=== PATIENT | male | born 1970 | race American Indian/Alaskan Native ===

== ENCOUNTER 2019-05-14 17:52 | Emergency (ER) | payer OTHER ==
--- NOTE | 2019-05-14 18:22 | Event Note ---
ED Screening Note Date of service: 05/14/19 Time: 18:21 ED Screening Note: 48 y/o male comes in for SOB, bilateral lower leg edema and increase weight and abd girth. Hx/o DM, HTN Asthma. This initial assessment/diagnostic orders/clinical plan/treatment(s) is/are subject to change based on patients health status, clinical progression and re- assessment by fellow clinical providers in the ED. Further treatment and workup at subsequent clinical providers discretion. Patient/guardian urged not to elope from the ED as their condition may be serious if not clinically assessed and managed. Initial orders include:
[2019-05-14 18:49] LABS: Hematocrit 43.4 % (35.5-45.6); Hemoglobin 14.7 gm/dl (11.8-15.2); Mean Corpuscular HGB Conc 34 % (32-34); Mean Corpuscular Volume 79 fl (84-94); Platelet Count 292 K/mm3 (140-440); Red Blood Count 5.46 M/mm3 (3.65-5.03); Red Cell Distribution Width 16.9 % (13.2-15.2)
--- NOTE | 2019-05-14 19:17 | XRay Report ---
CHEST 2 VIEWS INDICATION / CLINICAL INFORMATION: SOB. COMPARISON: 08/27/2013 FINDINGS: SUPPORT DEVICES: None. HEART / MEDIASTINUM: No significant abnormality. LUNGS / PLEURA: No significant pulmonary or pleural abnormality. No pneumothorax. ADDITIONAL FINDINGS: No significant additional findings. IMPRESSION: 1. No acute findings. Signer Name: Julio Cortez MD Signed: 05/14/2019 7:13 PM Workstation Name: [id number]
[2019-05-14 19:27] LABS: Alanine Aminotransferase 19 units/L (7-56); Albumin 3.8 g/dL (3.9-5); BUN/Creatinine Ratio 16; Blood Urea Nitrogen 23 mg/dL (9-20); Calcium 9.2 mg/dL (8.4-10.2); Hemolysis Index 15
[2019-05-14 21:02] LABS: Bacteria,Urine 1+ /HPF (Negative); Bilirubin,Urine NEG (Negative); Blood,Urine NEG (Negative); Color,Urine Yellow (Yellow); Mucus,Urine FEW /HPF; Protein,Urine >500 mg/dL (Negative); RBC,Urine < 1.0 /HPF (0.0-6.0); Urobilinogen,Urine < 2.0 mg/dL (<2.0); WBC,Urine < 1.0 /HPF (0.0-6.0)
--- NOTE | 2019-05-14 23:21 | Emergency Department Report ---
ED General Adult HPI - General Chief complaint: High BP Stated complaint: HPB/BLURY VISION Time Seen by Provider: 05/14/19 18:19 Source: patient Mode of arrival: Ambulatory Limitations: No Limitations - History of Present Illness Initial comments: This is a 48-year-old male that presents to the ER with elevated blood pressure and blurry vision. Past medical history of HTN, DM2, and asthma. Patient states his PCP took him off HCTZ a few months ago and he can't control dependent edema. He reports intermittent elevated blood pressure readings. He is currently taking nafidepine and lisinopril. PCP is at the [facility]. He denies orthopnea, chest pain, SOB, and dizziness. - Related Data Home Medications Medication Instructions Recorded Confirmed Last Taken Albuterol Sulfate [Albuterol 0.63%] 0.63 mg IH TID PRN 08/27/13 08/27/13 08/26/13 10:00 Aspirin [Baby Aspirin] 81 mg PO QDAY 08/27/13 08/27/13 08/26/13 10:00 Hydrochlorothiazide [Hctz] 50 mg PO QDAY 08/27/13 08/27/13 08/26/13 10:00 Previous Rx's Medication Instructions Recorded Last Taken Type Albuterol *Only Ed* [Proventil 2.5 mg IH Q4H PRN #30 nebu 08/27/13 Unknown Rx 0.5% NEBS] Azithromycin [Zithromax Z-SASHA] 250 mg PO DAILY #6 tablet 08/27/13 Unknown Rx Nebulizer [Compact Compressor 1 each MC Q4H PRN #1 kit 08/27/13 Unknown Rx Nebulizer] Prednisone 40 mg PO QDAY #8 tablet 08/27/13 Unknown Rx hydroCHLOROthiazide [Hctz] 12.5 mg PO QDAY #5 capsule 05/15/19 Unknown Rx Allergies Allergy/AdvReac Type Severity Reaction Status Date / Time dust Allergy Shortness Uncoded 08/27/13 01:52 of Breath pollen Allergy Unknown Uncoded 08/27/13 01:52 ED Review of Systems ROS: Stated complaint: HPB/BLURY VISION Other details as noted in HPI ED Past Medical Hx - Past Medical History Hx Hypertension: Yes Hx Diabetes: Yes Hx Asthma: Yes - Surgical History Past Surgical History?: No - Social History Smoking Status: Never Smoker Substance Use Type: None - Medications Home Medications: Home Medications Medication Instructions Recorded Confirmed Last Taken Type Albuterol *Only Ed* [Proventil 2.5 mg IH Q4H PRN #30 nebu 08/27/13 Unknown Rx 0.5% NEBS] Albuterol Sulfate [Albuterol 0.63%] 0.63 mg IH TID PRN 08/27/13 08/27/13 08/26/13 10:00 History Aspirin [Baby Aspirin] 81 mg PO QDAY 08/27/13 08/27/13 08/26/13 10:00 History Azithromycin [Zithromax Z-SASHA] 250 mg PO DAILY #6 tablet 08/27/13 Unknown Rx Hydrochlorothiazide [Hctz] 50 mg PO QDAY 08/27/13 08/27/13 08/26/13 10:00 History Nebulizer [Compact Compressor 1 each MC Q4H PRN #1 kit 08/27/13 Unknown Rx Nebulizer] Prednisone 40 mg PO QDAY #8 tablet 08/27/13 Unknown Rx hydroCHLOROthiazide [Hctz] 12.5 mg PO QDAY #5 capsule 05/15/19 Unknown Rx ED Physical Exam - General Limitations: No Limitations ED Course Vital Signs 05/14/19 05/14/19 05/14/19 18:08 21:00 21:15 Temperature 97.7 F Pulse Rate 133 H 87 Respiratory 16 15 Rate Blood Pressure 141/95 174/94 162/98 O2 Sat by Pulse 95 99 Oximetry 05/14/19 05/14/19 05/14/19 21:30 21:45 22:00 Temperature Pulse Rate 86 79 75 Respiratory 16 16 13 Rate Blood Pressure 162/98 147/97 147/97 O2 Sat by Pulse 100 99 94 Oximetry 05/14/19 05/14/19 05/14/19 22:16 22:30 22:46 Temperature Pulse Rate 75 87 79 Respiratory 13 16 13 Rate Blood Pressure 143/97 161/103 159/82 O2 Sat by Pulse 90 100 98 Oximetry 05/14/19 05/14/19 05/14/19 23:00 23:15 23:30 Temperature Pulse Rate 76 73 84 Respiratory 14 13 14 Rate Blood Pressure 159/82 165/111 159/82 O2 Sat by Pulse 97 98 99 Oximetry ED Medical Decision Making - Lab Data Result diagrams: 05/14/19 18:23 05/14/19 18:23 Lab Results 05/14/19 05/14/19 05/14/19 Range/Units 18:23 18:23 18:30 WBC 7.2 (4.5-11.0) K/mm3 RBC 5.46 H (3.65-5.03) M/mm3 Hgb 14.7 (11.8-15.2) gm/dl Hct 43.4 (35.5-45.6) % MCV 79 L (84-94) fl MCH 27 L (28-32) pg MCHC 34 (32-34) % RDW 16.9 H (13.2-15.2) % Plt Count 292 (140-440) K/mm3 Sodium 141 (137-145) mmol/L Potassium 4.0 (3.6-5.0) mmol/L Chloride 99.6 (98-107) mmol/L Carbon Dioxide 31 H (22-30) mmol/L Anion Gap 14 mmol/L BUN 23 H (9-20) mg/dL Creatinine 1.4 (0.8-1.5) mg/dL Estimated GFR > 60 ml/min BUN/Creatinine Ratio 16 % Glucose 260 H (75-100) mg/dL POC Glucose 251 H (70-105) Calcium 9.2 (8.4-10.2) mg/dL Total Bilirubin 0.30 (0.1-1.2) mg/dL AST 20 (5-40) units/L ALT 19 (7-56) units/L Alkaline Phosphatase 96 (35-129) units/L NT-Pro-B Natriuret Pep 1145 H (0-900) pg/mL Total Protein 7.2 (6.3-8.2) g/dL Albumin 3.8 L (3.9-5) g/dL Albumin/Globulin Ratio 1.1 % Urine Color (Yellow) Urine Turbidity (Clear) Urine pH (5.0-7.0) Ur Specific Crawford (1.003-1.030) Urine Protein (Negative) mg/dL Urine Glucose (UA) (Negative) mg/dL Urine Ketones (Negative) mg/dL Urine Blood (Negative) Urine Nitrite (Negative) Urine Bilirubin (Negative) Urine Urobilinogen (<2.0) mg/dL Ur Leukocyte Esterase (Negative) Urine WBC (Auto) (0.0-6.0) /HPF Urine RBC (Auto) (0.0-6.0) /HPF Urine Bacteria (Auto) (Negative) /HPF Urine Mucus /HPF 05/14/19 Range/Units Unknown WBC (4.5-11.0) K/mm3 RBC (3.65-5.03) M/mm3 Hgb (11.8-15.2) gm/dl Hct (35.5-45.6) % MCV (84-94) fl MCH (28-32) pg MCHC (32-34) % RDW (13.2-15.2) % Plt Count (140-440) K/mm3 Sodium (137-145) mmol/L Potassium (3.6-5.0) mmol/L Chloride (98-107) mmol/L Carbon Dioxide (22-30) mmol/L Anion Gap mmol/L BUN (9-20) mg/dL Creatinine (0.8-1.5) mg/dL Estimated GFR ml/min BUN/Creatinine Ratio % Glucose (75-100) mg/dL POC Glucose (70-105) Calcium (8.4-10.2) mg/dL Total Bilirubin (0.1-1.2) mg/dL AST (5-40) units/L ALT (7-56) units/L Alkaline Phosphatase (35-129) units/L NT-Pro-B Natriuret Pep (0-900) pg/mL Total Protein (6.3-8.2) g/dL Albumin (3.9-5) g/dL Albumin/Globulin Ratio % Urine Color Yellow (Yellow) Urine Turbidity Clear (Clear) Urine pH 6.0 (5.0-7.0) Ur Specific Crawford 1.016 (1.003-1.030) Urine Protein >500 (Negative) mg/dL Urine Glucose (UA) >=500 (Negative) mg/dL Urine Ketones Neg (Negative) mg/dL Urine Blood Neg (Negative) Urine Nitrite Neg (Negative) Urine Bilirubin Neg (Negative) Urine Urobilinogen < 2.0 (<2.0) mg/dL Ur Leukocyte Esterase Neg (Negative) Urine WBC (Auto) < 1.0 (0.0-6.0) /HPF Urine RBC (Auto) < 1.0 (0.0-6.0) /HPF Urine Bacteria (Auto) 1+ (Negative) /HPF Urine Mucus Few /HPF - EKG Data -: No EKG Interpreted by Me (EKG Interpreted by Attending) EKG shows normal: sinus rhythm Rate: normal - Radiology Data Radiology results: report reviewed CHEST 2 VIEWS INDICATION / CLINICAL INFORMATION: SOB. COMPARISON: 08/27/2013 FINDINGS: SUPPORT DEVICES: None. HEART / MEDIASTINUM: No significant abnormality. LUNGS / PLEURA: No significant pulmonary or pleural abnormality. No pneumothorax. ADDITIONAL FINDINGS: No significant additional findings. IMPRESSION: 1. No acute findings. - Medical Decision Making Patient seen by this provider. Vitals are stable and patient in no acute distress. Labs, EKG, and CXR obtained. The BNP is slightly elevated but patient his morbidly obese, DM2, & HTN. He denies orthopnea or chest pain. There is mild nonpitting edema, lung clear bilaterally on auscultation. EKG interpreted by attending, normal sinus rhythm 94. Start HCTZ for 5 days and instructed to follow up with PCP [facility]. Critical care attestation.: If time is entered above; I have spent that time in minutes in the direct care o f this critically ill patient, excluding procedure time. ED Disposition Clinical Impression: Hypertension Qualifiers: Hypertension type: essential hypertension Qualified Code(s): I10 - Essential (primary) hypertension Disposition: DC- TO HOME OR SELFCARE Is pt being admited?: No Does the pt Need Aspirin: No Condition: Stable Instructions: Hypertension (ED) Additional Instructions: Follow up with your primary care doctor at the [facility] in the next week. Return to the ER with shortness of breath, chest pain, or worsening symptoms. Prescriptions: hydroCHLOROthiazide [Hctz] 12.5 mg PO QDAY #5 capsule Referrals: SAGRARIO HATCH MD [Primary Care Provider] - 3-5 Days [facility] [Outside] - 3-5 Days Forms: Work/School Release Form(ED) Time of Disposition: 00:06
[2019-05-15 01:37] VITALS: BP 122/97
== END 2019-05-15 01:37 | disposition home or self-care (01) ==
LOC: ED 17:52
DX: I10 Essential (primary) hypertension (principal); E11.9 Type 2 diabetes mellitus without complications; J45.909 Unspecified asthma, uncomplicated
CPT/HCPCS: 36415; 71046; 80053; 81001; 82962; 83880; 85027; 93005; 93010

== ENCOUNTER 2021-04-12 09:24 | Emergency (ER) | payer OTHER ==
--- NOTE | 2021-04-12 10:16 | Emergency Department Report ---
ED Extremity Problem HPI - General Chief complaint: Pain General Stated complaint: (R)FOOT PAIN/GOUT Source: patient Mode of arrival: Ambulatory Limitations: No Limitations - History of Present Illness Initial comments: pt is a 50 yo male who presents to the ED with c/o acute gout flare of the right foot that began yesterday. he states he typically gets gout flares in the right foot and big toe. he denies any flare in the toe during this episode. he denies any fall or injury. he denies any numbness or weakness. pmhx of HTN and DM. he reports his glucose is well controlled with oral medications and he states his glucose typically runs in the 100s or less. no allergies to meds - Related Data Home Medications Medication Instructions Recorded Confirmed Last Taken Albuterol Sulfate [Albuterol 0.63%] 0.63 mg IH TID PRN 08/27/13 08/27/13 08/26/13 10:00 Aspirin [Baby Aspirin] 81 mg PO QDAY 08/27/13 08/27/13 08/26/13 10:00 Hydrochlorothiazide [Hctz] 50 mg PO QDAY 08/27/13 08/27/13 08/26/13 10:00 Previous Rx's Medication Instructions Recorded Last Taken Type Albuterol *Only Ed* [Proventil 2.5 mg IH Q4H PRN #30 nebu 08/27/13 Unknown Rx 0.5% NEBS] Azithromycin [Zithromax Z-SASHA] 250 mg PO DAILY #6 tablet 08/27/13 Unknown Rx Nebulizer [Compact Compressor 1 each MC Q4H PRN #1 kit 08/27/13 Unknown Rx Nebulizer] Prednisone 40 mg PO QDAY #8 tablet 08/27/13 Unknown Rx hydroCHLOROthiazide [Hctz] 12.5 mg PO QDAY #5 capsule 05/15/19 Unknown Rx Colchicine 0.6 mg PO DAILY 1 Days #3 tablet 04/12/21 Unknown Rx Indomethacin [Indocin] 25 mg PO Q8H #20 capsule 04/12/21 Unknown Rx predniSONE [Deltasone] 40 mg PO QDAY 5 Days #10 tab 04/12/21 Unknown Rx traMADoL [Ultram 50 MG tab] 50 mg PO Q6HR PRN #10 tablet 04/12/21 Unknown Rx Allergies Allergy/AdvReac Type Severity Reaction Status Date / Time dust Allergy Shortness Uncoded 08/27/13 01:52 of Breath pollen Allergy Unknown Uncoded 08/27/13 01:52 ED Review of Systems ROS: Stated complaint: (R)FOOT PAIN/GOUT Other details as noted in HPI Comment: All other systems reviewed and negative ED Past Medical Hx - Past Medical History Hx Hypertension: Yes Hx Diabetes: Yes Hx Asthma: Yes Additional medical history: Gout - Surgical History Past Surgical History?: No - Social History Smoking Status: Never Smoker Substance Use Type: None - Medications Home Medications: Home Medications Medication Instructions Recorded Confirmed Last Taken Type Albuterol *Only Ed* [Proventil 2.5 mg IH Q4H PRN #30 nebu 08/27/13 Unknown Rx 0.5% NEBS] Albuterol Sulfate [Albuterol 0.63%] 0.63 mg IH TID PRN 08/27/13 08/27/13 08/26/13 10:00 History Aspirin [Baby Aspirin] 81 mg PO QDAY 08/27/13 08/27/13 08/26/13 10:00 History Azithromycin [Zithromax Z-SASHA] 250 mg PO DAILY #6 tablet 08/27/13 Unknown Rx Hydrochlorothiazide [Hctz] 50 mg PO QDAY 08/27/13 08/27/13 08/26/13 10:00 History Nebulizer [Compact Compressor 1 each MC Q4H PRN #1 kit 08/27/13 Unknown Rx Nebulizer] Prednisone 40 mg PO QDAY #8 tablet 08/27/13 Unknown Rx hydroCHLOROthiazide [Hctz] 12.5 mg PO QDAY #5 capsule 05/15/19 Unknown Rx Colchicine 0.6 mg PO DAILY 1 Days #3 tablet 04/12/21 Unknown Rx Indomethacin [Indocin] 25 mg PO Q8H #20 capsule 04/12/21 Unknown Rx predniSONE [Deltasone] 40 mg PO QDAY 5 Days #10 tab 04/12/21 Unknown Rx traMADoL [Ultram 50 MG tab] 50 mg PO Q6HR PRN #10 tablet 04/12/21 Unknown Rx ED Physical Exam - General Limitations: No Limitations General appearance: alert, in no apparent distress - Head Head exam: Present: atraumatic, normocephalic - Eye Eye exam: Present: normal appearance - ENT ENT exam: Present: mucous membranes moist - Respiratory Respiratory exam: Absent: respiratory distress, accessory muscle use - Extremities Exam Extremities exam: Present: other (ttp and mild edema present to the right dorsal foot, FROM of the RLE, no erythema, no skin changes, no ulcerations, neurovascularly intact) - Neurological Exam Neurological exam: Present: alert, oriented X3 - Psychiatric Psychiatric exam: Present: normal affect, normal mood - Skin Skin exam: Present: warm, dry ED Course Vital Signs 04/12/21 10:04 Temperature 98.5 F Pulse Rate 98 H Respiratory 20 Rate Blood Pressure 138/79 O2 Sat by Pulse 99 Oximetry ED Medical Decision Making - Medical Decision Making pt is a 50 yo male who presents to the ED with c/o acute gout flare of the right foot that began yesterday. he states he typically gets gout flares in the right foot and big toe. he denies any flare in the toe during this episode. he denies any fall or injury. he denies any numbness or weakness. pmhx of HTN and DM. he reports his glucose is well controlled with oral medications and he states his glucose typically runs in the 100s or less. no allergies to meds. Vitals are stable. On exam:ttp and mild edema present to the right dorsal foot, FROM of the RLE, no erythema, no skin changes, no ulcerations, neurovascularly intact. Examination appears consistent with patient's acute gout flare. Patient given prescription for medication. Discussed the importance of outpatient primary care follow-up. Advised patient please take medication as prescribed. follow the diet for gout. follow up with your primary care doctor. return to the emergency room for any new or worsening symptoms. please check your sugars daily and if 250 or greater please stop the steroid (prednisone). Critical care attestation.: If time is entered above; I have spent that time in minutes in the direct care of this critically ill patient, excluding procedure time. ED Disposition Clinical Impression: Gout flare Qualifiers: Gout site: foot Gout etiology: unspecified cause Laterality: right Qualified Code(s): M10.9 - Gout, unspecified Disposition: HOME / SELF CARE / HOMELESS Is pt being admited?: No Does the pt Need Aspirin: No Condition: Stable Instructions: Low-Purine Eating Plan Additional Instructions: please take medication as prescribed. follow the diet for gout. follow up with your primary care doctor. return to the emergency room for any new or worsening symptoms. please check your sugars daily and if 250 or greater please stop the steroid (prednisone). Prescriptions: Colchicine 0.6 mg PO DAILY 1 Days #3 tablet predniSONE [Deltasone] 40 mg PO QDAY 5 Days #10 tab Indomethacin [Indocin] 25 mg PO Q8H #20 capsule traMADoL [Ultram 50 MG tab] 50 mg PO Q6HR PRN #10 tablet PRN Reason: Pain , Severe (7-10) Referrals: your, primary care doctor [Other] - 2-3 Days Time of Disposition: 10:19 Print Language: BULGARIAN
[2021-04-12 10:20] VITALS: BP 138/79
== END 2021-04-12 10:37 | disposition home or self-care (01) ==
LOC: ED 09:24
DX: M10.9 Gout, unspecified (principal); E11.8 Type 2 diabetes mellitus with unspecified complications; J45.909 Unspecified asthma, uncomplicated; Z88.9 Allergy status to unspecified drugs, medicaments and biological substances; Z91.048 Other nonmedicinal substance allergy status
CPT/HCPCS: 99281